=== PATIENT | female | born 2000 | race Caucasian/White ===

== ENCOUNTER 2020-08-18 11:01 | Emergency (ER) | payer OTHER ==
[2020-08-18 12:24] LABS: ANION GAP 11.6 mEq/L (7-13); CHLORIDE,CL 101 mmol/L (98-107); SODIUM,NA 135 mmol/L (136-145)
--- NOTE | 2020-08-18 13:07 | EDM.PDOC ---
Scribed by Estefany Vidal 08/18/20 1226 for Sara Orta MD ED HPI GENERAL MEDICAL PROBLEM - General Chief Complaint: DIRECT ENTRY MIDWIFE Problem Stated Complaint: LOSING A LOT OF BLOOD DUE TOMEDICINE FOR MISCARIGE Time Seen by Provider: 08/18/20 11:37 Source of Information: Reports: Patient, RN, RN Notes Reviewed History Limitations: Reports: No Limitations - History of Present Illness INITIAL COMMENTS - FREE TEXT/NARRATIVE: Patient presents to ED stating that she saw a octor in [place] about 2 weeks and was told that she miscarried. She was waiting to pass on its own, however, it did not so she took medication that was given to her by the physician. She started bleeding heavily a pad about every half hour. The physician told her to come to the emergency room if she was bleeding heavily. She also felt a little lightheaded at 1040 AM today. She has some occasional cramping. Abdominal Pain Score (Numeric/FACES): 7 - Related Data Allergies Allergy/AdvReac Type Severity Reaction Status Date / Time No Known Allergies Allergy Verified 08/18/20 11:22 Home Meds: Home Meds . [No Known Home Meds] 08/18/20 [History] Social & Family History - Tobacco Use Smoking Status *Q: Never Smoker Second Hand Smoke Exposure: No - Caffeine Use Caffeine Use: Reports: Coffee, Soda - Recreational Drug Use Recreational Drug Use: No ED ROS GENERAL - Review of Systems Review Of Systems: Comprehensive ROS is negative, except as noted in HPI. ED EXAM - Physical Exam Exam: See Below Exam Limited By: No Limitations General Appearance: Alert, WD/WN, No Apparent Distress Eye Exam: Bilateral Eye: EOMI, Normal Inspection, PERRL Ears: Normal External Exam, Normal Canal, Hearing Grossly Normal, Normal TMs Nose: Normal Inspection, Normal Mucosa, No Blood Throat/Mouth: Normal Inspection, Normal Lips, Normal Teeth, Normal Gums, Normal Oropharynx, Normal Voice, No Airway Compromise Head: Atraumatic, Normocephalic Neck: Normal Inspection, Supple, Non-Tender, Full Range of Motion Respiratory/Chest: No Respiratory Distress, Lungs Clear, Normal Breath Sounds, No Accessory Muscle Use, Chest Non-Tender Cardiovascular: Normal Peripheral Pulses, Regular Rate, Rhythm, No Edema, No Gallop, No JVD, No Murmur, No Rub GI/Abdominal Exam: Other (mild suprapubic tenderness) Rectal Exam: Deferred Back Exam: Normal Inspection, Full Range of Motion, NT Extremities: Normal Inspection, Normal Range of Motion, Non-Tender, Normal Capillary Refill, No Pedal Edema Neurological: Alert, Oriented, CN II-XII Intact, Normal Cognition, Normal Gait, Normal Reflexes, No Motor/Sensory Deficits Psychiatric: Normal Affect, Normal Mood Skin Exam: Warm, Dry, Intact, Normal Color, No Rash Lymphatic: No Adenopathy Course - Vital Signs Last Recorded V/S: Last Vital Signs Temp 97.8 F 08/18/20 11:10 Pulse 119 H 08/18/20 11:10 Resp 18 08/18/20 11:10 BP 111/66 08/18/20 11:10 Pulse Ox 98 08/18/20 11:10 - Orders/Labs/Meds Labs: Laboratory Tests 08/18/20 08/18/20 Range/Units 11:59 11:59 WBC 9.1 (5.0-10.0) 10^3/uL RBC 3.79 L (4.2-5.4) 10^6/uL Hgb 12.1 (12.0-16.0) g/dL Hct 34.6 L (37.0-47.0) % MCV 91.3 (80-100) fL MCH 31.9 (27.0-34.0) pg MCHC 35.0 (33.0-35.0) g/dL Plt Count 339 (150-450) 10^3/uL Neut % (Auto) 69.7 (42.2-75.2) % Lymph % (Auto) 20.2 L (20.5-50.1) % [place] % (Auto) 8.8 H (2-8) % Eos % (Auto) 0.9 L (1.0-3.0) % Baso % (Auto) 0.4 (0.0-1.0) % Sodium 135 L (136-145) mmol/L Potassium 4.6 (3.5-5.1) mmol/L Chloride 101 (98-107) mmol/L Carbon Dioxide 27 (21-32) mmol/L Anion Gap 11.6 (7-13) mEq/L BUN 9 (7-18) mg/dL Creatinine 0.68 (0.55-1.02) mg/dL Est Cr Clr Drug Dosing 124.57 mL/min Estimated GFR (MDRD) > 60 BUN/Creatinine Ratio 13.2 (No establ ref range) Glucose 101 H (74-99) mg/dL Calcium 8.9 (8.5-10.1) mg/dL Total Bilirubin 0.3 (0.2-1.0) mg/dL AST 17 (15-37) U/L ALT 18 (14-59) U/L Alkaline Phosphatase 52 (46-116) U/L Total Protein 7.1 (6.4-8.2) g/dL Albumin 3.6 (3.4-5.0) g/dL Globulin 3.5 Albumin/Globulin Ratio 1.0 Departure - Departure Time of Disposition: 13:07 Disposition: Home, Self-Care 01 Condition: Good Clinical Impression: Miscarriage - Discharge Information *PRESCRIPTION DRUG MONITORING PROGRAM REVIEWED*: Not Applicable *COPY OF PRESCRIPTION DRUG MONITORING REPORT IN PATIENT SHARON: Not Applicable Instructions: Miscarriage, [id number] Forms: ED Department Discharge Sepsis Event Note (ED) - Evaluation Sepsis Screening Result: No Definite Risk - Focused Exam Vital Signs: Vital Signs Temp Pulse Resp BP Pulse Ox 08/18/20 11:10 97.8 F 119 H 18 111/66 98 - Assessment/Plan Assessment:: 19 yo female with heavy bleeding due to miscarriage who is hemodynamically stable Plan: patient declined pelvic exam, US not available today reviewed CBC with pt reviewed reasons to call/return to the ER fu with PCP in 2-3 days, or sooner if needed I have read and agree with the documentation that has been completed regarding this visit. By signing this record, I attest that the documentation was completed in my physical presence and is an accurate record of the encounter.
== END 2020-08-18 13:38 | disposition home or self-care (01) ==
LOC: DL.ED 11:01
DX: O03.9 Complete or unspecified spontaneous abortion without complication (principal)
CPT/HCPCS: 36415; 80053; 85025; 99283; 99284

== ENCOUNTER 2021-12-08 20:52 | Inpatient (IN) | payer OTHER ==
[2021-12-08] MEDS ORDERED: Oxytocin/Normal Saline 30 UNIT/500 ML BAG IV SCH (23:45)
[2021-12-08] MEDS ORDERED: Carboprost Tromethamine 250 MCG/1 ML Amp IM PRN (23:55)
[2021-12-08] MEDS ORDERED: Lidocaine 1% 30 ML SDV INJECT PRN (23:55)
[2021-12-08] MEDS ORDERED: Lactated Ringers 1,000 ML IV ONE (23:55)
[2021-12-08] MEDS ORDERED: Methylergonovine 0.2 MG/1 ML Amp IM PRN (23:55)
[2021-12-08] MEDS ORDERED: Ondansetron 4 MG/2 ML SDV IVPUSH PRN (23:55)
[2021-12-08] MEDS ORDERED: Misoprostol 400 MCG (4 X 100 MCG TAB) RECTAL PRN (23:55)
[2021-12-08] MEDS ORDERED: Tranexamic Acid 1,000 MG in Sodium Chloride 0.9% 100 ML IV PRN (23:55)
[2021-12-08] MEDS ORDERED: Acetaminophen 325 MG Tab PO PRN (23:55)
[2021-12-09] MEDS ORDERED: fentaNYL 100 MCG/2 ML SDV IVPUSH PRN (00:06)
[2021-12-09] MEDS ORDERED: Nalbuphine 10 MG/1 ML Vial IM PRN ×2 (00:07→00:41)
[2021-12-09] MEDS ORDERED: Zolpidem 5 MG Tab PO PRN (04:12)
[2021-12-09] MEDS ORDERED: Simethicone 80 MG Tab.Chew PO PRN (04:12)
[2021-12-09] MEDS ORDERED: Acetaminophen 325 MG Tab PO PRN (04:12)
[2021-12-09] MEDS ORDERED: Carboprost Tromethamine 250 MCG/1 ML Amp IM PRN (04:12)
[2021-12-09] MEDS ORDERED: Misoprostol 400 MCG (4 X 100 MCG TAB) RECTAL PRN (04:12)
[2021-12-09] MEDS ORDERED: Benzocaine/Menthol 20%-0.5% Spray 78 GM Cannister TOP PRN (04:12)
[2021-12-09] MEDS ORDERED: Tranexamic Acid 1,000 MG in Sodium Chloride 0.9% 100 ML IV PRN (04:12)
[2021-12-09] MEDS ORDERED: Oxytocin/Normal Saline 30 UNIT/500 ML BAG IV STA (04:20)
[2021-12-09] MEDS: Lactated Ringers 1,000 ML IV SCH ×2 (05:07)
[2021-12-09] MEDS: Ferrous Sulfate 325 MG Tab PO SCH (09:37)
[2021-12-09] MEDS: Prenatal Multivitamin with Calcium/Folic Acid/Iron Tab PO SCH (09:37)
[2021-12-09] MEDS: Ibuprofen 800 MG Tab PO PRN (09:38)
[2021-12-09] MEDS: Docusate Sodium 100 MG Cap PO PRN (21:14)
[2021-12-10] MEDS: Ibuprofen 800 MG Tab PO PRN ×3 (02:21→19:19)
[2021-12-10] MEDS: Prenatal Multivitamin with Calcium/Folic Acid/Iron Tab PO SCH ×2 (09:57→10:03)
[2021-12-10] MEDS: Ferrous Sulfate 325 MG Tab PO SCH (09:57)
[2021-12-10] MEDS: Docusate Sodium 100 MG Cap PO PRN (19:19)
[2021-12-11] MEDS: Prenatal Multivitamin with Calcium/Folic Acid/Iron Tab PO SCH (08:08)
[2021-12-11] MEDS: Docusate Sodium 100 MG Cap PO PRN (08:08)
[2021-12-11] MEDS: Ferrous Sulfate 325 MG Tab PO SCH (08:08)
[2021-12-11] MEDS: Ibuprofen 800 MG Tab PO PRN (08:09)
== END 2021-12-11 09:35 | disposition home or self-care (01) | DRG 806 ==
LOC: DL.OBCHECK 20:52 → DL.OB 23:55 → OBSVTOIN 12-09 03:57 → DL.MS 12-10 08:09
PROVIDERS: ADMIT Obstetrics & Gynecology; ATTEND Obstetrics & Gynecology
PROC: 10E0XZZ Delivery of Products of Conception, External Approach (ICD-10-PCS; principal; 2021-12-09)
PROC: 10907ZC Drainage of Amniotic Fluid, Therapeutic from Products of Conception, Via Natural or Artificial Opening (ICD-10-PCS; 2021-12-09)
DX: O99.62 Diseases of the digestive system complicating childbirth (principal); D62 Acute posthemorrhagic anemia; Z37.0 Single live birth; O99.02 Anemia complicating childbirth; K59.00 Constipation, unspecified; O77.0 Labor and delivery complicated by meconium in amniotic fluid; Z3A.39 39 weeks gestation of pregnancy; O69.81X0 Labor and delivery complicated by cord around neck, without compression, not applicable or unspecified; Z20.822 Contact with and (suspected) exposure to COVID-19; Z28.82 Immunization not carried out because of caregiver refusal
CPT/HCPCS: 36415; 59409; 85027; 86592; 86850; 86900; 86901; A9270-GY; J2300; J2405; J2590; J7120; U0002